=== PATIENT | male | born 1970 | race Caucasian/White ===

== ENCOUNTER 2021-11-07 16:43 | Observation (INO) ==
[2021-11-07] MEDS ORDERED: Naloxone 0.4 MG/ML INJ IVP PRN (20:32)
[2021-11-07] MEDS ORDERED: *HR* Dextrose 50 % in Water (Syg) 50 ML SYRINGE IVP PRN (20:32)
[2021-11-07] MEDS ORDERED: D5% in Water 1,000 ML IVC PRN (20:32)
[2021-11-07] MEDS ORDERED: *HR* LORazepam 1 MG TABLET PO PRN ×3 (20:32)
[2021-11-07] MEDS ORDERED: Ondansetron 4 MG/2 ML VIAL IVP PRN (20:32)
[2021-11-07] MEDS ORDERED: Dextrose Gel 15 GM/37.5 ML TUBE PO PRN ×2 (20:32)
[2021-11-07] MEDS ORDERED: Ringers Solution, Lactated 1,000 ML IVC SCH (20:45)
[2021-11-07] MEDS ORDERED: Melatonin 3 MG TABLET PO PRN (21:00)
[2021-11-07] MEDS ORDERED: SODIUM CHLORIDE/NAHCO3/KCL/PEG 4,000 ML SOLN.RECON PO ONE (21:10)
[2021-11-07 21:15] LABS: Basophils % 1.3 %; Eosinophils % 1.3 %; Immature Granulocytes % 0.7 % (0-4)
[2021-11-07 21:17] LABS: Basophils # 0.1 K/mcL (0.0-0.2); Eosinophils # 0.1 K/mcL (0.0-0.6); Hematocrit 34.7 % (37.5-50.1); Hemoglobin 11.8 g/dL (12.9-16.9); Immature Platelets 4.7 % (1.1-6.1); Lymphocytes # 1.4 K/mcL (0.6-4.6); Lymphocytes % 30.3 %; Mean Corpuscular Hemoglobin 34.7 pg (28.0-33.3); Mean Corpuscular Volume 102.1 fL (83.0-100.0); Mean Platelet Volume 10.3 fL (9.4-12.4); Monocytes # 0.4 K/mcL (0.0-1.3); Monocytes % 9.7 %; Neutrophils # 2.6 K/mcL (1.6-8.9); Segmented Neutrophils % 56.7 %; White Blood Count 4.5 K/mcL (4.3-11.1)
[2021-11-07] MEDS: Thiamine (B-1) 100 MG TABLET PO SCH (21:22)
[2021-11-07] MEDS: Vitamin B Complex/Vit C/Vit E 1 EACH TABLET PO SCH (21:22)
[2021-11-07] MEDS: Folic Acid 1 MG TABLET PO SCH (21:22)
[2021-11-07 21:32] LABS: BUN/Creatinine Ratio 10 (6-26); Blood Urea Nitrogen 9 mg/dL (6-20); Calcium 7.6 mg/dL (8.6-10.3); Carbon Dioxide 21 mEq/L (23-29); Chloride 108 mEq/L (98-107); Glucose 98 mg/dL (70-105); Osmolality,Calculated 283 (280-300); Potassium 3.7 mEq/L (3.5-5.1); Sodium 137 mEq/L (136-145)
[2021-11-07 21:48] LABS: Estimated Average Glucose 183 mg/dl
[2021-11-07 22:19] LABS: Platelet Count 80 K/mcL (140-400)
[2021-11-07 22:20] LABS: Platelet Estimate Decreased (Normal); Stomatocytes 1+ (Not Present)
[2021-11-07] MEDS: Acetaminophen 325 MG TABLET PO PRN (22:31)
[2021-11-07] MEDS ORDERED: *HR* Labetalol 20 MG/4 ML SYRINGE IVP ONE (23:33)
[2021-11-08] MEDS: lisinopriL 20 MG TABLET PO SCH ×2 (00:15→09:05)
[2021-11-08] MEDS: Insulin LISPRO 300 UNITS/3 ML VIAL SUBQ SCH ×3 (00:31→12:56)
[2021-11-08 04:46] LABS: Basophils % 1.4 %; Hemoglobin 10.6 g/dL (12.9-16.9)
[2021-11-08 04:49] LABS: Basophils # 0.1 K/mcL (0.0-0.2); Eosinophils # 0.1 K/mcL (0.0-0.6); Eosinophils % 2.5 %; Hematocrit 31.1 % (37.5-50.1); Immature Granulocytes % 0.6 % (0-4); Immature Platelets 4.8 % (1.1-6.1); Lymphocytes # 1.1 K/mcL (0.6-4.6); Lymphocytes % 29.2 %; Mean Corpuscular HGB Conc 34.1 g/dL (31.6-35.5); Mean Corpuscular Hemoglobin 35.2 pg (28.0-33.3); Mean Corpuscular Volume 103.3 fL (83.0-100.0); Mean Platelet Volume 10.2 fL (9.4-12.4); Monocytes # 0.4 K/mcL (0.0-1.3); Red Blood Count 3.01 M/mcL (4.19-5.50); Red Cell Distribution Width 17.3 % (11.5-14.5); Segmented Neutrophils % 56.3 %; White Blood Count 3.6 K/mcL (4.3-11.1)
[2021-11-08 04:55] LABS: INR 1.3; Prothrombin Time 14.8 Seconds (9.4-12.1)
[2021-11-08 04:58] LABS: Activated Partial Thrombo Time 29.2 Seconds (26.0-36.0)
[2021-11-08 05:13] LABS: Acetaminophen < 10 mcg/mL (10-20); Alanine Aminotransferase 39 Units/L (7-52); Albumin 2.5 g/dL (3.5-5.7); Albumin/Globulin Ratio 0.7 (1.1-2.2); Alkaline Phosphatase 241 Units/L (34-104); Aspartate Amino Transferase 84 Units/L (13-39); Bilirubin,Direct 1.4 mg/dL (0.0-0.2); Bilirubin,Indirect 1.3 mg/dL (0.0-1.0); Bilirubin,Total 2.7 mg/dL (0.3-1.0); Globulin 3.6 g/dL (2.4-3.5); Salicylate < 2.5 mg/dL (15.0-30.0); Total Protein 6.1 g/dL (6.4-8.9)
[2021-11-08 05:16] LABS: BUN/Creatinine Ratio 9 (6-26); Blood Urea Nitrogen 8 mg/dL (6-20); Calcium 7.5 mg/dL (8.6-10.3); Carbon Dioxide 22 mEq/L (23-29); Chloride 107 mEq/L (98-107); Chol/HDL Ratio 29.8 (0-4.9); Cholesterol 268 mg/dL (< 200); Glucose 142 mg/dL (70-105); HDL Cholesterol 9 mg/dL (40-59); Magnesium 1.6 mg/dL (1.6-2.6); Osmolality,Calculated 281 (280-300); Phosphorous 2.3 mg/dL (2.7-4.5); Potassium 3.1 mEq/L (3.5-5.1); Sodium 135 mEq/L (136-145); Triglycerides 480 mg/dL (< 150)
[2021-11-08 05:21] LABS: Platelet Count 77 K/mcL (140-400)
[2021-11-08] MEDS ORDERED: Potassium Phosphate 44 MEQ in 0.9 % Sodium Chloride 250 ML IVPB ONE (05:22)
[2021-11-08] MEDS: Pantoprazole 40 MG VIAL IVP SCH ×2 (05:55→17:33)
[2021-11-08 06:23] LABS: Hepatitis B Surface Antigen Nonreactive (Nonreactive)
[2021-11-08 06:53] LABS: Hepatitis B Core IgM Nonreactive (Nonreactive); Hepatitis C Virus Antibody Nonreactive (Nonreactive)
[2021-11-08 06:55] LABS: Hepatitis A Antibody IgM Nonreactive (Nonreactive)
[2021-11-08] MEDS: Thiamine (B-1) 100 MG TABLET PO SCH (09:04)
[2021-11-08] MEDS: Vitamin B Complex/Vit C/Vit E 1 EACH TABLET PO SCH (09:05)
[2021-11-08] MEDS: Folic Acid 1 MG TABLET PO SCH (09:05)
[2021-11-08] MEDS ORDERED: Simethicone 40 MG/0.6 ML MLS ONE (12:17)
[2021-11-08] MEDS ORDERED: Lidocaine -MPF 2% 5 ML VIAL ONE (12:46)
[2021-11-08] MEDS ORDERED: *HR* Propofol 200 MG/20 ML VIAL IVP ONE (13:05)
[2021-11-08] MEDS ORDERED: Potassium Chloride Elixir 20 MEQ/15 ML UDC PO ONE (16:40)
[2021-11-08] MEDS: Acetaminophen 325 MG TABLET PO PRN (20:03)
[2021-11-08] MEDS: Lactulose Oral Soln 20 GM/30 ML UDC PO SCH (20:04)
[2021-11-08] MEDS ORDERED: Insulin LISPRO 300 UNITS/3 ML VIAL SUBQ SCH (21:00)
[2021-11-09] MEDS: Pantoprazole 40 MG VIAL IVP SCH (06:19)
[2021-11-09 06:46] LABS: Hematocrit 32.5 % (37.5-50.1); Monocytes % 10.7 %; Red Cell Distribution Width 17.7 % (11.5-14.5)
[2021-11-09 06:48] LABS: Basophils # 0.1 K/mcL (0.0-0.2); Eosinophils # 0.1 K/mcL (0.0-0.6); Eosinophils % 1.7 %; Hemoglobin 11.1 g/dL (12.9-16.9); Immature Granulocytes % 0.7 % (0-4); Immature Platelets 5.3 % (1.1-6.1); Lymphocytes % 34.3 %; Mean Corpuscular HGB Conc 34.2 g/dL (31.6-35.5); Mean Corpuscular Hemoglobin 36.2 pg (28.0-33.3); Mean Corpuscular Volume 105.9 fL (83.0-100.0); Mean Platelet Volume 10.6 fL (9.4-12.4); Monocytes # 0.3 K/mcL (0.0-1.3); Neutrophils # 1.5 K/mcL (1.6-8.9); Red Blood Count 3.07 M/mcL (4.19-5.50); Segmented Neutrophils % 50.6 %
[2021-11-09 06:50] LABS: Platelet Count 78 K/mcL (140-400)
[2021-11-09 06:57] LABS: Alanine Aminotransferase 33 Units/L (7-52); Albumin 2.5 g/dL (3.5-5.7); Albumin/Globulin Ratio 0.8 (1.1-2.2); Alkaline Phosphatase 265 Units/L (34-104); Aspartate Amino Transferase 76 Units/L (13-39); BUN/Creatinine Ratio 5 (6-26); Bilirubin,Total 1.8 mg/dL (0.3-1.0); Blood Urea Nitrogen 5 mg/dL (6-20); Calcium 7.9 mg/dL (8.6-10.3); Carbon Dioxide 23 mEq/L (23-29); Chloride 109 mEq/L (98-107); Globulin 3.3 g/dL (2.4-3.5); Glucose 176 mg/dL (70-105); Osmolality,Calculated 284 (280-300); Potassium 3.3 mEq/L (3.5-5.1); Sodium 136 mEq/L (136-145); Total Protein 5.8 g/dL (6.4-8.9)
[2021-11-09] MEDS: Vitamin B Complex/Vit C/Vit E 1 EACH TABLET PO SCH (08:37)
[2021-11-09] MEDS: Folic Acid 1 MG TABLET PO SCH (08:37)
[2021-11-09] MEDS: Thiamine (B-1) 100 MG TABLET PO SCH (08:37)
[2021-11-09] MEDS: lisinopriL 20 MG TABLET PO SCH (08:37)
[2021-11-09] MEDS: Lactulose Oral Soln 20 GM/30 ML UDC PO SCH (08:38)
[2021-11-09] MEDS: Insulin LISPRO 300 UNITS/3 ML VIAL SUBQ SCH ×2 (08:42→11:46)
== END 2021-11-09 13:04 | disposition home or self-care (01) ==
LOC: 3ANU → SUATTDRO 18:53
PROVIDERS: ADMIT Hospitalist; ATTEND Internal Medicine
PROC: ENDOEBX (2021-11-08 13:00)